=== PATIENT | male | born 1985 | race Caucasian/White ===

== ENCOUNTER 2020-11-17 08:08 | Emergency (ER) | payer OTHER ==
[~2020-11-17] VITALS: Ht 177.8 cm; Wt 60.0 kg
[2020-11-17 08:54] LABS: BASOPHILS % (AUTO) 1 % (0-1); EOSINOPHILS % (AUTO) 2 % (1-7); LYMPHOCYTES % (AUTO) 37 % (22-44); MEAN CORPUSCULAR HEMOGLOBIN 30.2 pg (27.5-34.5); MEAN CORPUSCULAR HGB CONC 34.9 g/dL (33.2-36.2); MEAN PLATELET VOLUME 7.5 fL (7.4-10.4); MONOCYTES % (AUTO) 6 % (2-9); NEUTROPHILS % (AUTO) 54 % (42-75); PLATELET COUNT 261 x10^3/uL (130-400); RED BLOOD COUNT 5.34 x10^6/uL (4.38-5.82); RED CELL DISTRIBUTION WIDTH 13.1 % (9.4-14.8)
[2020-11-17 08:57] LABS: ALBUMIN 4.2 g/dL (3.4-5.0); CALCIUM 8.8 mg/dL (8.5-10.1); CHLORIDE 106 mmol/L (98-107); CREATININE 0.86 mg/dL (0.7-1.3)
[2020-11-17 09:05] LABS: MD NO
[2020-11-17 09:18] LABS: ANION GAP 3 mmol/L (5-15)
[2020-11-17] MEDS ORDERED: NEOSPORIN OINT. PKT 1 PACKET ONE (10:25)
--- NOTE | 2020-11-17 10:51 | NUR ---
CERTIFIED RECREATIONAL THERAPIST; PT TO ROOM FROM [facility]
[2020-11-17 10:57] VITALS: BP 146/94
== END 2020-11-17 11:55 | disposition home or self-care (01) ==
LOC: ED 10:19
DX: M25.522 Pain in left elbow (principal); L04.0 Acute lymphadenitis of face, head and neck
CPT/HCPCS: 36415; 80048; 82040; 85025; 99284